=== PATIENT | female | born 1995 | race Caucasian/White ===

== ENCOUNTER → 2020-06-04 | Outpatient (CLI) | payer OTHER ==
[~2020-06-04] MED LIST: BUPRENORPHIN-N1 EACH PO; CUBICIN 500 MG500 MG INJ; DOK100 MG PO; DULCOLAX5 MG PO; IBUPROFEN600 MG PO; MACROBID 100 M100 MG PO; PRENATAL VITAM1 EAC8 PO; SUBUTEX 8 MG TAB8 MG PO; VANCOMYCIN1 GM/2002 IV; VANCOMYCIN1 GM/2501 IV; WELLBUTRIN SR150 M1 PO; ZOLOFT50 MG PO
== END ==
LOC: ECHO 10:00
DX: I38 Endocarditis, valve unspecified (principal); I07.1 Rheumatic tricuspid insufficiency; I27.20 Pulmonary hypertension, unspecified
CPT/HCPCS: ECHO; 93306

== ENCOUNTER → 2021-01-01 | Outpatient (CLI) | payer OTHER | LOC: HEART 5 08-14 10:00 | DX: I38 Endocarditis, valve unspecified (principal); R07.9 Chest pain, unspecified; R93.1 Abnormal findings on diagnostic imaging of heart and coronary circulation | CPT/HCPCS: 93306 ==